=== PATIENT | female | born 1945 | race Caucasian/White ===

== ENCOUNTER → 2017-08-02 08:13 | Outpatient (CLI) | payer MEDICARE ==
[2014-12-27 17:28] VITALS: BMI 31.0
[~2017-08-02 08:13] MED LIST: ALDACTONE25 MG PO; BAYER CHEWABLE81 MG PO; CALCIUM 600+D T1 TA1 PO; CELEXA10 MG PO; CO Q-10200 MG PO; HYDROCODONE-APA1 TAB PO; LYRICA50 MG PO; NUCYNTA50 MG PO; OMEGA-3100 MG PO; PERCOCET 10/3251 TA1 PO; PREVACID30 MG PO; PROVIGIL200 MG PO; SYNTHROID50 MCG PO; ZIAC 2.5/6.25 M1 TAB PO
== END | disposition home or self-care (01) ==
LOC: D.MAMMO 08-01 13:15
DX: Z12.31 Encounter for screening mammogram for malignant neoplasm of breast (principal)

== ENCOUNTER → 2019-03-04 09:22 | Outpatient (CLI) | payer MEDICARE ==
[2014-12-27 17:28] VITALS: BMI 31.0
--- NOTE | 2019-03-05 15:25 | ST ---
PATIENT:RAMIN SAMANO MEDICAL RECORD: [id number] SEX: F LOCATION:[facility] ORDER #: ADMISSION DATE: 03/04/19 AGE OF PATIENT: 73 REFERRING PHYSICIAN: INTERPRETING PHYSICIAN: MOISE WING MD DATE OF SERVICE: 03/04/2019 PROCEDURE: Nuclear stress test. INDICATION: Chest pain, shortness of breath. She was exercised on standard Lexiscan protocol with 27 mCi sestamibi injected at peak stress, 8 mCi used previously for rest images. FINDINGS: Gated SPECT reveals preserved ejection fraction at 79% with good wall motion and thickening and brightening throughout all segments. SPECT imaging Cardiolite was used as myocardial fusion agent. There is homogeneous uptake throughout all segments at rest and stress with no evidence of inducible ischemia or previous infarction. OVERALL IMPRESSION: 1. This is a normal nuclear stress test with no evidence of inducible ischemia or previous infarction. 2. Gated SPECT reveals a preserved ejection fraction at 79%. In this patient with ongoing symptomatology, the current scan does not suggest the presence of hemodynamically significant coronary artery disease. Evaluate noncardiac etiology of chest pain. TRANSINT:[id number] Voice Confirmation ID: [id number] DOCUMENT ID: [id number] MOISE WING MD at 1525 CC: FREEDOM SANCHEZ MD [id number] DICTATION DATE: 03/04/19 1607 BUSINESS ANALYST: 03/05/19 0726 [facility] CLI 03/04/19 [facility] [address] [place] [address]
== END | disposition home or self-care (01) ==
LOC: D.HCCARDIO 09:22
PROVIDERS: ATTEND Internal Medicine Interventional Cardiology
DX: R07.9 Chest pain, unspecified (principal)

== ENCOUNTER → 2019-05-13 10:05 | Outpatient (CLI) | payer MEDICARE ==
[2014-12-27 17:28] VITALS: BMI 31.0
== END | disposition home or self-care (01) ==
LOC: D.RT 08:30
PROVIDERS: ATTEND Internal Medicine Pulmonary Disease
DX: J45.909 Unspecified asthma, uncomplicated (principal)

== ENCOUNTER 2019-10-13 18:15 | Outpatient (CLI) | payer MEDICARE ==
[2014-12-27 17:28] VITALS: BMI 31.0
== END 2019-10-13 23:59 | disposition home or self-care (01) ==
LOC: D.MAMMO 18:15
PROVIDERS: ATTEND Family Medicine
DX: Z12.31 Encounter for screening mammogram for malignant neoplasm of breast (principal)

== ENCOUNTER 2019-12-25 17:54 | Inpatient (IN) | payer MEDICARE ==
[~2019-12-25] VITALS: Ht 160 cm; Wt 79.5 kg
--- NOTE | ~2019-12-25 | EC ---
PATIENT:RAMIN SAMANO DATE OF SERVICE: 12/25/19 SEX: F MEDICAL RECORD: [id number] DATE OF : 45 LOCATION:[place] [id number] AGE OF PATIENT: 74 ADMISSION DATE: 12/25/19 REFERRING PHYSICIAN: INTERPRETING PHYSICIAN: CHAKA BUITRAGO MD ECHOCARDIOGRAM REPORT ECHO CHARGES 4 ECHO COMPLETE Date: 12/26/19 CLINICAL DIAGNOSIS: NON-STEMI ECHOCARDIOGRAPHIC MEASUREMENTS (adult normal given) AC root (d.<3.7cm) 3.1 cm LV Septum d (<1.2 cm> 0.8 cm Valve Excursion 1.5 cm LV Septum (systole) 1.1 cm Left Atria (s.<4.0cm> 3.0 cm LVPW d(<1.2cm) 0.9 cm RV (d.<2.3cm) 2.2 cm LVPW (sytole) 1.0 cm LV diastole(<5.6CM) 4.4 cm MV E-F(>70mm/sec) cm LV systole 3.5 cm LVOT Diameter 1.6 cm MV exc.(>10mm) 1.1 cm Est.ejection fraction (50-75%) % DOPPLER: LVIT cm/sec A 133 cm/sec E 79 cm/sec LA cm/sec RVSP 33 mmHg LVOT 88 cm/sec AOP1/2T m/s Asc. Ao 121 cm/sec RVOT 69 cm/sec RA cm/sec PA 82 cm/sec AV Gradient Peak 5.9 mmHg AV Mean 3.6 mmHg AV Area 1.5 cm MV Gradient Peak 8.1 mmHg MV Mean 3.0 mmHg MV Area cm COMMENTS: Peace Officer: Lakshmi BARRETT Barrel Scraper: 5 Dr. Buitrago TAPE# Pericardial Effusion N DATE OF SERVICE: CLINICAL INDICATION: Chest pain. INTERPRETATION: Normal left ventricular chamber size and contractile function, ejection fraction 55% to 60%. Right atrial and right ventricular chamber size and function appear normal. Left atrial chamber size appears normal. Aortic valve appears normal. No stenosis/regurgitation. Mild mitral annular calcification. Otherwise, normal mitral valve. [id number] mitral regurgitation. Tricuspid valve appears normal. Mild tricuspid regurgitation. ECHOCARDIOGRAM REPORT [id number] RAMIN SAMANO Pulmonic valve appears normal. Mild pulmonic insufficiency. No pericardial effusion visualized. IMPRESSION: Normal left ventricular chamber size and contractile function, ejection fraction 55% to 60%. TRANSINT:[id number] Voice Confirmation ID: [id number] DOCUMENT ID: [id number] CHAKA BUITRAGO MD CC: [id number] DICTATION DATE: 12/26/19 133 SOURCING ANALYST: 12/26/19 170 DIS IN 12/26/19 [facility] [address] [place] [id number]
[2019-12-25 17:58] VITALS: Ht 160 cm; Wt 79.5 kg
--- NOTE | 2019-12-25 18:05 | NUR ---
ELEVATED TROPONIN AT WALK IN CLINIC
[2019-12-25 18:33] LABS: BASOPHILS 0.3 % (0-2); EOSINOPHILS 1.6 % (0-7); HEMATOCRIT 43.3 % (36.0-48.0); HEMOGLOBIN 14.5 g/dL (12-16); IMMATURE GRANULOCYTES 0.4 % (0-5); LYMPHOCYTES 28.2 % (15-50); MCH 30.1 pg (26.0-34.0); MCHC 33.5 g/dL (31.0-37.0); MCV 89.8 fL (80.0-100.0); MEAN PLATELET VOLUME 8.7 fL (7.4-10.4); NEUTROPHILS 60.5 % (40-80); PLATELET COUNT 174 10x3/uL (130-400); RBC 4.82 10x6/uL (4.00-5.40); RDW 12.9 % (11.5-14.5)
[2019-12-25 18:44] LABS: CALC OSMOLALITY 261 mosm/kg (275-300); CALCIUM 8.6 mg/dL (8.5-10.1); CHLORIDE - SERUM 97 mmol/L (98-107); GLUCOSE 92 mg/dL (74-106); POTASSIUM - SERUM 4.2 mmol/L (3.5-5.1); SODIUM 130 mmol/L (136-145); UREA NITROGEN 16 mg/dL (7-18); eGFR NON AFRICAN AMERICAN 57 mL/min (90-120)
[2019-12-25 18:55] LABS: APTT 26.2 SECONDS (22.8-39.4); INR 1.08 (0.85-1.17); PROTIME 13.9 SECONDS (11.6-15.0)
[2019-12-25 19:05] LABS: ALBUMIN 3.5 g/dL (3.4-5.0); ALKALINE PHOSPHATASE 95 U/L (30-120); ALT (SGPT) 19 U/L (10-68); BILIRUBIN - TOTAL 0.63 mg/dL (0.2-1.3); CKMB 3.5 U/L (0.0-3.6); CREATINE KINASE 62 UL (21-215); MAGNESIUM - SERUM 2.2 mg/dL (1.8-2.4); PROTEIN - SERUM 7.2 g/dL (6.4-8.2)
[2019-12-25 19:14] LABS: TROPONIN-I 1.273 ng/mL (0.000-0.060)
--- NOTE | 2019-12-25 19:22 | NUR ---
ELEVATED TROP CALLED TO DR BARON.
--- NOTE | 2019-12-25 20:00 | NUR ---
REPORT GIVEN TO PATRICK LEWIS
[2019-12-25] MEDS ORDERED: RIVASTIGMINE3 MG PO (21:26)
[2019-12-25] MEDS ORDERED: NAMENDA10 MG PO (21:26)
[2019-12-25] MEDS ORDERED: SYMBICORT 16010.2 GM INH (21:27)
[2019-12-25] MEDS ORDERED: MUCINEX DM ER1 EAC1 PO (21:28)
[2019-12-25] MEDS ORDERED: TESSALON PERLE100 MG PO (21:29)
[2019-12-25] MEDS ORDERED: ZOLOFT100 MG PO (21:29)
[2019-12-25] MEDS ORDERED: PEPCID40 MG PO (21:30)
[2019-12-25] MEDS ORDERED: SINGULAIR10 MG PO (21:32)
[2019-12-25] MEDS ORDERED: MERIBIN5 MG PO (21:33)
[2019-12-25] MEDS ORDERED: SUPER B COMPLE1 EAC1 PO (21:33)
[2019-12-25] MEDS ORDERED: VITAMIN D400 UNI1 PO (21:34)
[2019-12-25] MEDS ORDERED: CALCIUM 600 +1 EAC3 PO (21:34)
[2019-12-25] MEDS ORDERED: ZIPSOR25 MG PO (21:35)
[2019-12-25] MEDS ORDERED: METHOCARBAMOL750 MG PO (21:36)
[2019-12-25] MEDS ORDERED: ZYRTEC10 MG PO (21:36)
--- NOTE | 2019-12-25 22:47 | NUR ---
COVID SWAB TO LAB
[2019-12-25 23:02] VITALS: BP 115/68
[2019-12-26 01:30] VITALS: BP 97/57
--- NOTE | 2019-12-26 01:30 | NUR ---
PT REPORT FROM DEBBIE NGUYEN. PT DENIES NEEDS RESTING IN BED AT THIS TIME.
[2019-12-26 03:00] VITALS: BP 98/59
--- NOTE | 2019-12-26 03:00 | NUR ---
PT RESTING EYES CLOSED AT THIS TIME.
[2019-12-26 05:00] VITALS: BP 100/48
[2019-12-26 06:00] VITALS: BP 107/65
[2019-12-26 07:29] LABS: BASOPHILS 0.6 % (0-2); EOSINOPHILS 2.5 % (0-7); HEMATOCRIT 42.2 % (36.0-48.0); HEMOGLOBIN 14.1 g/dL (12-16); IMMATURE GRANULOCYTES 0.6 % (0-5); MCH 30.2 pg (26.0-34.0); MCHC 33.4 g/dL (31.0-37.0); MCV 90.4 fL (80.0-100.0); MEAN PLATELET VOLUME 9.5 fL (7.4-10.4); MONOCYTES 9.6 % (2-11); NEUTROPHILS 52.7 % (40-80); PLATELET COUNT 187 10x3/uL (130-400); RBC 4.67 10x6/uL (4.00-5.40); WBC 8.4 10x3/uL (4.8-10.8)
[2019-12-26 08:25] LABS: ALBUMIN 3.3 g/dL (3.4-5.0); ALKALINE PHOSPHATASE 89 U/L (30-120); ALT (SGPT) 18 U/L (10-68); BILIRUBIN - TOTAL 0.48 mg/dL (0.2-1.3); CALC OSMOLALITY 266 mosm/kg (275-300); CALCIUM 8.6 mg/dL (8.5-10.1); CHLORIDE - SERUM 100 mmol/L (98-107); CKMB 1.9 U/L (0.0-3.6); CREATINE KINASE 52 UL (21-215); CREATININE - SERUM 0.8 mg/dL (0.6-1.3); GLUCOSE 99 mg/dL (74-106); PROTEIN - SERUM 6.5 g/dL (6.4-8.2); SODIUM 133 mmol/L (136-145); UREA NITROGEN 15 mg/dL (7-18); eGFR NON AFRICAN AMERICAN 74 mL/min (90-120)
[2019-12-26 08:33] LABS: TROPONIN-I 0.863 ng/mL (0.000-0.060)
[2019-12-26 10:19] LABS: CHOL - HDL RATIO 4.8 ratio (2.3-4.1); LDL-HDL RATIO 3.2 ratio (1.5-3.5)
[2019-12-26 10:36] VITALS: BP 112/62
[2019-12-26] MEDS ORDERED: ISOSORBIDE MONO30 M1 PO (10:46)
== END 2019-12-26 14:15 | disposition home or self-care (01) | DRG 281 ==
LOC: D.ER 17:54 → D.EDHOLD 18:55
PROVIDERS: Family Medicine; Internal Medicine Cardiovascular Disease; ADMIT Family Medicine; ATTEND Family Medicine
DX: I21.4 Non-ST elevation (NSTEMI) myocardial infarction (principal); E87.1 Hypo-osmolality and hyponatremia; B02.29 Other postherpetic nervous system involvement; I10 Essential (primary) hypertension; J45.909 Unspecified asthma, uncomplicated; E78.5 Hyperlipidemia, unspecified; E03.9 Hypothyroidism, unspecified; R53.82 Chronic fatigue, unspecified; M85.80 Other specified disorders of bone density and structure, unspecified site; R41.3 Other amnesia; G47.33 Obstructive sleep apnea (adult) (pediatric)